=== PATIENT | female | born 1940 | race Caucasian/White ===

== ENCOUNTER → 2017-01-20 16:39 | Outpatient (CLI) | payer MEDICARE ==
[2015-06-04 09:01] VITALS: BMI 16.8
[~2017-01-20 16:39] MED LIST: ALENDRONATE SOD70 MG PO; CALCIUM 600+D T1 TA1 PO; NORVASC2.5 MG PO; TYLENOL W/CODEI1 TAB PO; ZANTAC150 MG PO
== END | disposition home or self-care (01) ==
LOC: D.MAMMO 14:00
DX: Z85.3 Personal history of malignant neoplasm of breast (principal); Z12.31 Encounter for screening mammogram for malignant neoplasm of breast

== ENCOUNTER 2019-05-07 12:10 | Inpatient (IN) | payer MEDICARE ==
[2019-05-07] VITALS (12 sets, daily range): BP systolic 107–125; BP diastolic 47–79; BMI 14.7
[~2019-05-07] VITALS: Ht 160 cm; Wt 41.5 kg
[2019-05-07 12:43] LABS: BASOPHILS 0.1 % (0-2); EOSINOPHILS 0.1 % (0-7); IMMATURE GRANULOCYTES 0.6 % (0-5); LYMPHOCYTES 8.7 % (15-50); MCH 31.5 pg (26.0-34.0); MCHC 32.3 g/dL (31.0-37.0); MCV 97.5 fL (80.0-100.0); MEAN PLATELET VOLUME 8.2 fL (7.4-10.4); MONOCYTES 3.4 % (2-11); NEUTROPHILS 87.1 % (40-80); RBC 2.03 10x6/uL (4.00-5.40); RDW 14.8 % (11.5-14.5); WBC 13.7 10x3/uL (4.8-10.8)
[2019-05-07 12:47] LABS: HEMATOCRIT 19.8 % (36.0-48.0); HEMOGLOBIN 6.4 g/dL (12-16); PLATELET COUNT 718 10x3/uL (130-400)
--- NOTE | 2019-05-07 12:48 | NUR ---
CRITICAL LABS CALLED BY YANIRA MAIL SORTER, AT THIS. HGB 6.4 HCT 19.8 EDP, CHELO, AND PRIMARY RN, GUILLERMO, INFORMED AT THIS TIME
[2019-05-07 13:00] LABS: APTT 31.4 SECONDS (22.8-39.4)
[2019-05-07 13:01] LABS: D-DIMER-QUANTITATIVE 0.66 ug/mLFEU (0.20-0.54); INR 0.96 (0.85-1.17); PROTIME 12.3 SECONDS (11.6-15.0)
[2019-05-07 13:09] LABS: ANION GAP 21.4 mmol/L (8-16); CALCIUM 8.5 mg/dL (8.5-10.1); CARBON DIOXIDE 20.1 mmol/L (21.0-32.0); POTASSIUM - SERUM 3.5 mmol/L (3.5-5.1)
[2019-05-07 13:23] LABS: ALBUMIN 2.7 g/dL (3.4-5.0); BILIRUBIN - TOTAL 0.27 mg/dL (0.2-1.3); MAGNESIUM - SERUM 1.7 mg/dL (1.8-2.4); PROTEIN - SERUM 6.6 g/dL (6.4-8.2); THYROID STIMULATING HORMONE 0.92 uIU/mL (0.36-3.74); TROPONIN-I 0.026 ng/mL (0.000-0.060)
[2019-05-07 13:46] LABS: APPEARANCE CLEAR (CLEAR); BACTERIA MANY /hpf (NEGATIVE); BILIRUBIN NEGATIVE (NEGATIVE); COLOR YELLOW (YELLOW); EPITHELIAL CELLS 0-5 /hpf (0-5); GLUCOSE NEGATIVE (NEGATIVE); KETONE NEGATIVE (NEGATIVE); MUCUS >1+ /lpf (NONE SEEN); NITRITE POSITIVE (NEGATIVE); PROTEIN TRACE mg/dL (NEGATIVE); RED CELLS - URINE 0-5 /hpf (0-5); UROBILINOGEN NORMAL (NORMAL); WHITE CELLS - URINE 0-5 /hpf (NEGATIVE)
--- NOTE | 2019-05-07 14:19 | NUR ---
PT ARRIVED TO UNIT
[2019-05-07] MEDS ORDERED: CALCIUM 500 +1 EAC3 PO (14:28)
[2019-05-07] MEDS ORDERED: AMBIEN5 MG PO (14:29)
--- NOTE | 2019-05-07 15:30 | NUR ---
UNIT OF BLOOD STARTED
--- NOTE | 2019-05-07 17:00 | NUR ---
patient alert and oriented. family at bedside. eating full liquids. tolerated. protonix drip per dr barksdale. levofloxain per dr barksdale. lungs cta. lower lobes diminished. no distress. 2 l nc. murmur. denies shortness of breath. vss. 1 unit complted. will continue to monitor.
[2019-05-07 17:18] LABS: % SATURATION 19 % (15-55); IRON 34 ug/dl (35-150); TOTAL IRON BIND CAPACITY 173 ug/dl (260-445); UNSAT IRON BIND CAPACITY 139 ug/dl (150-375)
[2019-05-07 19:00] LABS: HEMATOCRIT 24.9 % (36.0-48.0); HEMOGLOBIN 8.2 g/dL (12-16)
--- NOTE | 2019-05-07 19:00 | NUR ---
REPORT RECIEVED, PT AAOX4, SITTING IN BED. ASSESSMENT COMPLETED, SEE FLOWSHEET. RECIEVING SECOND UNIT OF PRBC AT THIS TIME, NO ACUTE DISTRESS NOTED. WILL CONTINUE TO MONITOR.
--- NOTE | 2019-05-07 21:00 | NUR ---
PT RESTING IN BED, PRBC STILL INFUSING, NO SIGNS OF ACUTE DISTRESS. PM MEDS TAKEN WITHOUT DIFFICULTY. WILL CONTINUE TO MONITOR.
--- NOTE | 2019-05-07 23:00 | NUR ---
PT SITTING UP IN BED, NO ACUTE DISTRESS NOTED. WILL CONTINUE TO MONITOR.
[2019-05-07 23:01] LABS: HEMATOCRIT 29.5 % (36.0-48.0); HEMOGLOBIN 10.1 g/dL (12-16)
[2019-05-08] VITALS (18 sets, daily range): BP systolic 103–124; BP diastolic 50–66; Ht 160 cm; Wt 41.5 kg
--- NOTE | 2019-05-08 01:00 | NUR ---
PT SITTING IN BED, AAOX4, NO ACUTE DISTRESS NOTED. WILL CONTINUE TO MONITOR.
[2019-05-08 02:44] LABS: BASOPHILS 0 % (0-2); EOSINOPHILS 0 % (0-7); HEMATOCRIT 29.9 % (36.0-48.0); HEMOGLOBIN 10.3 g/dL (12-16); IMMATURE GRANULOCYTES 0.3 % (0-5); LYMPHOCYTES 8.1 % (15-50); MCH 30.8 pg (26.0-34.0); MCHC 34.4 g/dL (31.0-37.0); MEAN PLATELET VOLUME 8.5 fL (7.4-10.4); MONOCYTES 1.4 % (2-11); NEUTROPHILS 90.2 % (40-80); RDW 14.7 % (11.5-14.5)
[2019-05-08 02:47] LABS: RBC 3.34 10x6/uL (4.00-5.40); WBC 9.3 10x3/uL (4.8-10.8)
[2019-05-08 02:48] LABS: MCV 89.5 fL (80.0-100.0); PLATELET COUNT 417 10x3/uL (130-400)
--- NOTE | 2019-05-08 03:00 | NUR ---
PT SITTING UP IN BED, AAOX4. VITALS STABLE, WILL CONTINUE TO MONITOR.
[2019-05-08 03:06] LABS: % SATURATION 40 % (15-55); IRON 69 ug/dl (35-150); TOTAL IRON BIND CAPACITY 172 ug/dl (260-445); UNSAT IRON BIND CAPACITY 103 ug/dl (150-375)
[2019-05-08 03:20] LABS: ALBUMIN 2.4 g/dL (3.4-5.0); ALKALINE PHOSPHATASE 59 U/L (46-116); ALT (SGPT) 15 U/L (10-68); BILIRUBIN - TOTAL 0.37 mg/dL (0.2-1.3); CALC OSMOLALITY 286 mosm/kg (275-300); CALCIUM 7.8 mg/dL (8.5-10.1); CARBON DIOXIDE 23.7 mmol/L (21.0-32.0); CHLORIDE - SERUM 107 mmol/L (98-107); CREATININE - SERUM 0.7 mg/dL (0.6-1.3); FERRITIN 170 ng/mL (3-244); GLUCOSE 127 mg/dL (74-106); POTASSIUM - SERUM 3.6 mmol/L (3.5-5.1); PRO BNP 1335 pg/mL (0-450); SODIUM 142 mmol/L (136-145); TROPONIN-I 0.017 ng/mL (0.000-0.060); UREA NITROGEN 17 mg/dL (7-18); eGFR NON AFRICAN AMERICAN 86 mL/min (90-120)
--- NOTE | 2019-05-08 05:00 | NUR ---
PT SITTING UP IN BED, AAOX4, NO ACUTE DISTRESS NOTED.
--- NOTE | 2019-05-08 07:22 | NUR ---
REPORT RECIEVED, SHIFT ASSESSMENT COMPLETE, PT IS ALERT AND ORIENTED, UPTO BSC, 75CC UOP, SM DARK BM, PT TOLERATED WELL, VSS, CALL LIGHT IN REACH
--- NOTE | 2019-05-08 09:00 | NUR ---
PT RESTING COMFORTABLY AT THIS TIME, VSS, CALL LIGHTIN REACH
--- NOTE | 2019-05-08 11:00 | NUR ---
DR. PARKER AT BEDSIDE, UPDATE GIVEN, OK TO TRANSFER TO FLOOR
[2019-05-08 11:43] LABS: HEMOGLOBIN 10.4 g/dL (12-16)
--- NOTE | 2019-05-08 13:30 | NUR ---
FAMILY AT BEDSIDE, UPDATE GIVEN, WILL CON'T TO MONITOR
--- NOTE | 2019-05-08 17:35 | NUR ---
RECEIVED PATIENT FROM ICU. ALERT AND ORIENTED. FAMILY AT BEDSIDE. NO C/O PAIN. NO S/S OF ACUTE DISTRESS NOTED. DENIES ANY NEEDS AT THIS TIME. CALL LIGHT IN REACH. WILL CONTINUE TO MONITOR.
[2019-05-08 17:38] LABS: HEMATOCRIT 28.7 % (36.0-48.0); HEMOGLOBIN 9.8 g/dL (12-16)
--- NOTE | 2019-05-08 19:20 | MORECARE ---
CASE MANAGEMENT DISCHARGE SUMMARY PATIENT: NAIMA SERRANO UNIT: [id number] ADM DATE: 05/07/19 AGE: 78 : 40 SEX: F ROOM/BED: D.2236 AUTHOR: SONGDOC PHYSICIAN: REFERRING PHYSICIAN: EMILY SHERMAN MD DATE OF SERVICE: 05/08/19 Discharge Plan Patient Name: NAIMA SERRANO Facility: [facility]:[place] : 1940 Planned Disposition: Home Anticipated Discharge Date: Discharge Date: Expected LOS: Initial Reviewer: [id number] Initial Review Date: 05/08/2019 Generated: 05/08/19 8:20 pm Comments DCP- Discharge Planning Updated by [email or web address]: Linda Holloway on 05/08/19 6:[address] Patient Name: NAIMA SERRANO Admission Status: Elective Accout number: [id number] Admission Date: 05-07-2019 : 1940 Admission Diagnosis: Attending: EMILY SHERMAN Current LOS: 1 Anticipated DC Date: Planned Disposition: Home Primary Insurance: [facility] MEDICARE SOLUTIONS Discharge Planning Comments: CM met with patient to complete initial dc planning assessment. CM educated patient on the CM role and verbal consent given by patient to complete assessment. Patient lives at home alone where she is independent with her care. At discharge patient plans to return home and feels this is a safe discharge. CM discussed availability of home health, rehab services, and medical equipment. She will have family drive her home upon discharge. Patient denies any use of medical equipment at home ( walker, cane , home 02 or nebulizer) Patient denied known discharge needs at this time. CM will continue to follow and will assist as needed with dc plans/needs. Smash Hand: Linda Holloway DCPIA - Discharge Planning Initial Assessment Updated by [id number]: Linda Holloway on 05/08/19 7:17 pm * Is the patient Alert and Oriented? Yes * How many steps to enter\exit or inside your home? * PCP Srinivasan * [facility] * Preadmission Environment Home Alone * ADLs Independent * List name and contact numbers for known caregivers / representatives who currently or will assist patient after discharge: Jerrell Serrano - son - [phone] * Verbal permission to speak to the caregivers and representatives has been obtained from the patient. Yes * Community resources currently utilized None * Additional services required to return to the preadmission environment? No * Can the patient safely return to the preadmission environment? Yes * Has this patient been hospitalized within the prior 30 days at any hospital? No Patient Name: NAIMA SERRANO Page [id number] at 1920 All edits/amendments must be made on the electronic document DICTATION DATE: 05/08/191919 ASSISTANT SHIFT SUPERVISOR: CARLYN 05/08/191919 RPT#: [id number] DC DATE: STATUS: ADM IN [facility] [address] [place] [address] END OF REPORT
--- NOTE | 2019-05-08 20:00 | NUR ---
ASSESSMENT -PER FLOWSHEET. IV PATENT LEFT FOREARM OF PROTONIX GGT AT 10CC'S/HR SITE CLEAR. DENIES NEEDS SR UP X2 CALL LIGHT WITHIN. REACH.
--- NOTE | 2019-05-08 22:00 | NUR ---
EYES CLOSED RESPIRATIONS WITH EAse.
[2019-05-08 23:24] LABS: HEMOGLOBIN 9.5 g/dL (12-16)
--- NOTE | 2019-05-09 02:00 | NUR ---
VOIDS WELL DENIES NEEDS.
[2019-05-09 04:00] VITALS: BP 158/56
[2019-05-09 06:55] LABS: BASOPHILS 0.1 % (0-2); EOSINOPHILS 0.1 % (0-7); HEMATOCRIT 29.9 % (36.0-48.0); HEMOGLOBIN 9.9 g/dL (12-16); IMMATURE GRANULOCYTES 0.4 % (0-5); LYMPHOCYTES 13.2 % (15-50); MCH 30.5 pg (26.0-34.0); MCHC 33.1 g/dL (31.0-37.0); MEAN PLATELET VOLUME 8.2 fL (7.4-10.4); MONOCYTES 5.5 % (2-11); NEUTROPHILS 80.7 % (40-80); PLATELET COUNT 495 10x3/uL (130-400); RBC 3.25 10x6/uL (4.00-5.40); RDW 16.2 % (11.5-14.5)
[2019-05-09 07:19] LABS: CALCIUM 7.8 mg/dL (8.5-10.1); CARBON DIOXIDE 28.2 mmol/L (21.0-32.0); CHLORIDE - SERUM 109 mmol/L (98-107); CREATININE - SERUM 0.7 mg/dL (0.6-1.3); GLUCOSE 87 mg/dL (74-106); SODIUM 145 mmol/L (136-145); WBC 11.7 10x3/uL (4.8-10.8); eGFR NON AFRICAN AMERICAN 86 mL/min (90-120)
[2019-05-09 07:24] LABS: CALC OSMOLALITY 286 mosm/kg (275-300); UREA NITROGEN 11 mg/dL (7-18)
[2019-05-09 07:26] LABS: POTASSIUM - SERUM 2.9 mmol/L (3.5-5.1)
--- NOTE | 2019-05-09 07:38 | NUR ---
PT SITTING UP IN BED WITH EYES OPEN ALERT AND ORIENTED. IV LOCATED TO THE LEFT FA RUNNING PROTOTIX AT 10ML AND RIGHT FA CURRENTLY SL. CURRENTLY RCVING 2L VIA NC. NO S/S OF DISTRESS AT THIS TIME. ASSISTED TO THE BATHROOM AND BACK TO BED, DENIES OTHER NEEDS AT THIS TIME, WILL CONT TO MONITOR.
[2019-05-09 08:34] VITALS: BP 120/48
--- NOTE | 2019-05-09 08:40 | NUR ---
LAB CALLED WITH CRITICAL K+ LEVEL OF 2.9, TREATED WITH 1ST DOSE OF [id number], 2 MORE DOES TO FOLLOW.
--- NOTE | 2019-05-09 10:51 | NUR ---
NOTIFIED OF K+ LEVEL OF 2.9. CONT WITH ELECTROLYTE PROTOCOL.
--- NOTE | 2019-05-09 11:41 | EC ---
PATIENT:NAIMA SERRANO DATE OF SERVICE: 05/07/19 SEX: F MEDICAL RECORD: [id number] DATE OF : 40 LOCATION:[facility] AGE OF PATIENT: 78 ADMISSION DATE: 05/07/19 REFERRING PHYSICIAN: INTERPRETING PHYSICIAN: MELITON VARGAS MD ECHOCARDIOGRAM REPORT ECHO CHARGES 4 ECHO COMPLETE Date: 05/08/19 CLINICAL DIAGNOSIS: VALVULAR HEART DISEASE ECHOCARDIOGRAPHIC MEASUREMENTS (adult normal given) AC root (d.<3.7cm) 1.6 cm LV Septum d (<1.2 cm> 0.9 cm Valve Excursion 0.7 cm LV Septum (systole) 1.2 cm Left Atria (s.<4.0cm> 3.2 cm LVPW d(<1.2cm) 0.7 cm RV (d.<2.3cm) 2.3 cm LVPW (sytole) 0.9 cm LV diastole(<5.6CM) 5.1 cm MV E-F(>70mm/sec) cm LV systole 4.0 cm LVOT Diameter 1.7 cm MV exc.(>10mm) cm Est.ejection fraction (50-75%) % DOPPLER: LVIT cm/sec A 114 cm/sec E 80 cm/sec LA cm/sec RVSP 36.2 mmHg LVOT 120 cm/sec AOP1/2T m/s Asc. Ao 374 cm/sec RVOT 82 cm/sec RA cm/sec PA 96 cm/sec AV Gradient Peak 56.0 mmHg AV Mean 33.5 mmHg AV Area 0.7 cm MV Gradient Peak 5.8 mmHg MV Mean 3.5 mmHg MV Area cm COMMENTS: Supervisor Agricultural Education: Alejandro OLMOS Milling Machine Operator Gear: 1 Dr. Vargas TAPE# PACS Pericardial Effusion N DATE OF SERVICE: 05/08/2019 PROCEDURE: Echocardiogram. FINDINGS: 1. Left ventricular chamber size is within normal limits. Left ventricular systolic function is normal at 55% to 60%. 2. Left atrium, right atrium, and right ventricle chamber sizes are within normal limits. 3. 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 The remaining valvular structures have normal structure and motion. 4. Doppler interrogation elsewise reveals mild aortic insufficiency, mild mitral regurgitation, mild tricuspid regurgitation, no other valvular insufficiency or stenosis and pulmonary systolic pressure is normal estimated 36 mmHg. 5. No evidence of pericardial effusion or left ventricular thrombus. TRANSINT:[id number] Voice Confirmation ID: [id number] DOCUMENT ID: [id number] MELITON VARGAS MD at 1141 CC: [id number] DICTATION DATE: 05/08/19 1119 ORDER TO DELIVERY SUPERVISOR: 05/08/19 1214 ADM IN [place] [id number] [place] [id number]
[2019-05-09 12:53] VITALS: BP 115/52
[2019-05-09 17:02] VITALS: BP 115/53
--- NOTE | 2019-05-09 20:00 | NUR ---
ASSESSMENT PER FLOWSHEET. IV PATENT LEFT ARM OF PROTONIX GTT AT 10CC'S/HR SALINE LOCK TO RT ARM PATENT. SCD'S OFF AT THIS TIME. BED ALARM BED ON SR UP X2 CALL LIGHT WITHIN REACH. DENIES NEEDS.
[2019-05-09 20:46] VITALS: BP 111/45
--- NOTE | 2019-05-09 21:15 | NUR ---
MEDS GIVEN PER MAR. DENIES NEEDS.
--- NOTE | 2019-05-10 00:43 | NUR ---
EYES CLOSED RESPIRATIONS WITH EASE AND UNLABORED. MEDS PER SEP.
[2019-05-10 01:11] VITALS: BP 124/50
[2019-05-10 05:43] VITALS: BP 120/48
[2019-05-10 06:18] LABS: BASOPHILS 0.1 % (0-2); HEMOGLOBIN 9.6 g/dL (12-16); IMMATURE GRANULOCYTES 0.3 % (0-5); LYMPHOCYTES 26.2 % (15-50); MCH 30.8 pg (26.0-34.0); MCHC 33.1 g/dL (31.0-37.0); MCV 92.9 fL (80.0-100.0); MEAN PLATELET VOLUME 8.4 fL (7.4-10.4); MONOCYTES 8.3 % (2-11); NEUTROPHILS 64.1 % (40-80); PLATELET COUNT 452 10x3/uL (130-400); RBC 3.12 10x6/uL (4.00-5.40); RDW 16.2 % (11.5-14.5)
[2019-05-10 06:24] LABS: WBC 7.2 10x3/uL (4.8-10.8)
[2019-05-10 06:33] LABS: ALBUMIN 2.3 g/dL (3.4-5.0); ALKALINE PHOSPHATASE 58 U/L (46-116); ALT (SGPT) 19 U/L (10-68); BILIRUBIN - TOTAL 0.29 mg/dL (0.2-1.3); CALC OSMOLALITY 285 mosm/kg (275-300); CALCIUM 7.6 mg/dL (8.5-10.1); CARBON DIOXIDE 29.3 mmol/L (21.0-32.0); CHLORIDE - SERUM 108 mmol/L (98-107); CREATININE - SERUM 0.7 mg/dL (0.6-1.3); GLUCOSE 89 mg/dL (74-106); POTASSIUM - SERUM 3.4 mmol/L (3.5-5.1); PROTEIN - SERUM 5.7 g/dL (6.4-8.2); SODIUM 145 mmol/L (136-145); eGFR NON AFRICAN AMERICAN 86 mL/min (90-120)
[2019-05-10 06:34] LABS: UREA NITROGEN 7 mg/dL (7-18)
--- NOTE | 2019-05-10 07:25 | NUR ---
PT AWAKE, ALERT AND ORIENTED, ASISTED TO THE BATHROOM AND BACK TO BED. IV LOCATED TO LEFT FA RUNNING PROTONIX @ 10, IV LOCATED TO RIGHT FA CURRENTLY SL. CURRENTLY RCVING O2 @ 2L. NO S/S OF DISTRESS AT THIS TIME, DENIES NEEDS AT THIS TIME WILL CONT TO MONITOR.
--- NOTE | 2019-05-10 08:27 | MORECARE ---
CASE MANAGEMENT DISCHARGE SUMMARY PATIENT: NAIMA SERRANO UNIT: [id number] ADM DATE: 05/07/19 AGE: 78 : 40 SEX: F ROOM/BED: D.2236 AUTHOR: SONGDOC PHYSICIAN: REFERRING PHYSICIAN: EMILY SHERMAN MD DATE OF SERVICE: 05/10/19 Discharge Plan Patient Name: NAIMA SERRANO Facility: [facility]:[place] : 1940 Planned Disposition: Home Anticipated Discharge Date: Discharge Date: Expected LOS: Initial Reviewer: [email or web address] Initial Review Date: 05/08/2019 Generated: 05/10/19 9:26 am Comments DCP- Discharge Planning Updated by [email or web address]: Linda Holloway on 05/08/19 6:[address] Patient Name: NAIMA SERRANO Admission Status: Elective Accout number: [id number] Admission Date: 05-07-2019 : 1940 Admission Diagnosis: Attending: EMILY SHERMAN Current LOS: 1 Anticipated DC Date: Planned Disposition: Home Primary Insurance: [facility] MEDICARE SOLUTIONS Discharge Planning Comments: CM met with patient to complete initial dc planning assessment. CM educated patient on the CM role and verbal consent given by patient to complete assessment. Patient lives at home alone where she is independent with her care. At discharge patient plans to return home and feels this is a safe discharge. CM discussed availability of home health, rehab services, and medical equipment. She will have family drive her home upon discharge. Patient denies any use of medical equipment at home ( walker, cane , home 02 or nebulizer) Patient denied known discharge needs at this time. CM will continue to follow and will assist as needed with dc plans/needs. Nuclear Pharmacist: Linda Holloway DCPIA - Discharge Planning Initial Assessment Updated by [email or web address]: Linda Holloway on 05/08/19 7:17 pm * Is the patient Alert and Oriented? Yes * How many steps to enter\exit or inside your home? * PCP Srinivasan * Pharmacy [place] * Preadmission Environment Home Alone * ADLs Independent * List name and contact numbers for known caregivers / representatives who currently or will assist patient after discharge: Jerrell Serrano - son - [phone] * Verbal permission to speak to the caregivers and representatives has been obtained from the patient. Yes * Community resources currently utilized None * Additional services required to return to the preadmission environment? No * Can the patient safely return to the preadmission environment? Yes * Has this patient been hospitalized within the prior 30 days at any hospital? No External Providers [facility] Contact Date: Service Request Date: Service Type: Resolution: Reviewer: Comments: Last DP export: 05/08/19 6:20 Patient Name: NAIMA SERRANO Page [id number] at 0827 All edits/amendments must be made on the electronic document DICTATION DATE: 05/10/19825 NEON ELECTRICIAN: CARLYN 05/10/19825 RPT#: [id number] DC DATE: STATUS: ADM IN [facility] [address] [place] [address] END OF REPORT
--- NOTE | 2019-05-10 08:34 | MORECARE ---
CASE MANAGEMENT DISCHARGE SUMMARY PATIENT: NAIMA SERRANO UNIT: [id number] ADM DATE: 05/07/19 AGE: 78 : 40 SEX: F ROOM/BED: D.2236 AUTHOR: SONG,DOC PHYSICIAN: REFERRING PHYSICIAN: EMILY SHERMAN MD DATE OF SERVICE: 05/10/19 Discharge Plan Patient Name: NAIMA SERRANO Facility: [facility]:[place] : 1940 Planned Disposition: Home Anticipated Discharge Date: Discharge Date: Expected LOS: Initial Reviewer: [id number] Initial Review Date: 05/08/2019 Generated: 05/10/19 9:33 am Comments DCP- Discharge Planning Updated by [email or web address]: Rhonda Spann on 05/10/19 7:[address] Walk test ordered to test for home oxygen. Nebulizer and possible oxygen order sent to [facility] after ADELAIDA form signed and Brian notified. Clinical faxed to [facility]. Patient declines home health. States "I still drive and get around, just not at night." CM will continue to follow and assist with discharge planning/needs. DCP- Discharge Planning Updated by [id number]: Linda Holloway on 05/08/19 6:[address] Patient Name: NAIMA SERRANO Admission Status: Elective Accout number: [id number] Admission Date: 05-07-2019 : 1940 Admission Diagnosis: Attending: EMILY SHERMAN Current LOS: 1 Anticipated DC Date: Planned Disposition: Home Primary Insurance: [facility] MEDICARE SOLUTIONS Discharge Planning Comments: CM met with patient to complete initial dc planning assessment. CM educated patient on the CM role and verbal consent given by patient to complete assessment. Patient lives at home alone where she is independent with her care. At discharge patient plans to return home and feels this is a safe discharge. CM discussed availability of home health, rehab services, and medical equipment. She will have family drive her home upon discharge. Patient denies any use of medical equipment at home ( walker, cane , home 02 or nebulizer) Patient denied known discharge needs at this time. CM will continue to follow and will assist as needed with dc plans/needs. Deputy County Counsel: Linda Holloway DCPIA - Discharge Planning Initial Assessment Updated by [id number]: Linda Pepperr on 05/08/19 7:17 pm * Is the patient Alert and Oriented? Yes * How many steps to enter\\exit or inside your home? * PCP Srinivasan * Pharmacy [facility] * Preadmission Environment Home Alone * ADLs Independent * List name and contact numbers for known caregivers / representatives who currently or will assist patient after discharge: Jerrell Serrano [facility] - [phone] * Verbal permission to speak to the caregivers and representatives has been obtained from the patient. Yes * Community resources currently utilized None * Additional services required to return to the preadmission environment? No * Can the patient safely return to the preadmission environment? Yes * Has this patient been hospitalized within the prior 30 days at any hospital? No Coverage Notice Reviewer: [id number] R Spann Notice Issued Date-Time: 05/10/2019 8:26 Notice Type: IM Discharge Notice Notice Delivered To: Patient Relationship to Patient: Self Salsa Dance Instructor Name: Delivery Method: HAND - Hand Delivered Marylu Days: Prior Verbal Notification: Recipient Understood Notice: Yes Recipient Signature: Yes Med Rec Note Co-signed by Attending: Coverage Notice Comment: IMM explained, signed, given, copy placed in MR Reviewer: [id number] R Spann Notice Issued Date-Time: 05/10/2019 8:26 Notice Type: Patient Choice Letter Notice Delivered To: Patient Relationship to Patient: Self Salsa Dance Instructor Name: Delivery Method: HAND - Hand Delivered Marylu Days: Prior Verbal Notification: Recipient Understood Notice: Yes Recipient Signature: Yes Med Rec Note Co-signed by Attending: Coverage Notice Comment: ADELAIDA for Souravare Last DP export: 05/10/19 7:27 Patient Name: NAIMA SERRANO Page [phone] at 0834 All edits/amendments must be made on the electronic document DICTATION DATE: 05/10/19832 METAL TREATER: CARLYN 05/10/19832 RPT#: [id number] DC DATE: STATUS: ADM IN [facility] [address] [place] [address] END OF REPORT
[2019-05-10 08:46] VITALS: BP 112/43
--- NOTE | 2019-05-10 09:07 | NUR ---
K+ 3.4, TREATED WITH 40MEQ. WILL CONT TO MONITOR.
--- NOTE | 2019-05-10 09:30 | NUR ---
PATIENT 97% ON RA PATIENT 95% ON RA AFTER AMBULATION
[2019-05-10] MEDS ORDERED: FLORAJEN3 CAPS460 MG PO (11:01)
[2019-05-10] MEDS ORDERED: PULMICORT0.25 MG/1 INH (11:01)
[2019-05-10] MEDS ORDERED: BROVANA15 MCG/2 M INH (11:02)
[2019-05-10] MEDS ORDERED: IPRAT-ALBUT 0.5-3 ML INH (11:02)
[2019-05-10] MEDS ORDERED: SULFAMETHOXAZOL1 TA2 PO (11:04)
[2019-05-10 12:10] VITALS: BP 98/56
--- NOTE | 2019-05-10 12:18 | MORECARE ---
CASE MANAGEMENT DISCHARGE SUMMARY PATIENT: NAIMA SERRANO UNIT: [id number] ADM DATE: 05/07/19 AGE: 78 : 40 SEX: F ROOM/BED: D.2236 AUTHOR: CARMEN ZULETA PHYSICIAN: REFERRING PHYSICIAN: EMILY SHERMAN MD DATE OF SERVICE: 05/10/19 Discharge Plan Patient Name: NAIMA SERRANO Facility: [facility]:[place] : 1940 Planned Disposition: Home Anticipated Discharge Date: Discharge Date: Expected LOS: Initial Reviewer: [email or web address] Initial Review Date: 05/08/2019 Generated: 05/10/19 1:18 pm Comments DCP- Discharge Planning Updated by [email or web address]: Rhonda Spann on 05/10/19 11:[address] Oxygen saturation is 97% on room air at rest and 95% with exertion on room air, she does not qualify for home oxygen. She is in a chronic stable state and is discharging home today. Her son is picking up her nebulizer at [facility] (Per Brian). Clinical for [facility] faxed to [facility]. Home today. DCP- Discharge Planning Updated by [email or web address]: Rhonda Spann on 05/10/19 7:[address] Walk test ordered to test for home oxygen. Nebulizer and possible oxygen order sent to [facility] after ADELAIDA form signed and Brian notified. Clinical faxed to [facility]. Patient declines home health. States "I still drive and get around, just not at night." CM will continue to follow and assist with discharge planning/needs. DCP- Discharge Planning Updated by [id number]: Linda Holloway on 05/08/19 6:[address] Patient Name: NAIMA SERRANO Admission Status: Elective Accout number: [id number] Admission Date: 05-07-2019 : 1940 Admission Diagnosis: Attending: EMILY SHERMAN Current LOS: 1 Anticipated DC Date: Planned Disposition: Home Primary Insurance: [facility] MEDICARE SOLUTIONS Discharge Planning Comments: CM met with patient to complete initial dc planning assessment. CM educated patient on the CM role and verbal consent given by patient to complete assessment. Patient lives at home alone where she is independent with her care. At discharge patient plans to return home and feels this is a safe discharge. CM discussed availability of home health, rehab services, and medical equipment. She will have family drive her home upon discharge. Patient denies any use of medical equipment at home ( walker, cane , home 02 or nebulizer) Patient denied known discharge needs at this time. CM will continue to follow and will assist as needed with dc plans/needs. Lead Tank Mechanic: Linda Holloway DCPIA - Discharge Planning Initial Assessment Updated by [id number]: Linda Holloway on 05/08/19 7:17 pm * Is the patient Alert and Oriented? Yes * How many steps to enter\\exit or inside your home? * PCP [place] * Pharmacy [place] * Preadmission Environment Home Alone * ADLs Independent * List name and contact numbers for known caregivers / representatives who currently or will assist patient after discharge: Jerrell Serrano [facility] - [phone] * Verbal permission to speak to the caregivers and representatives has been obtained from the patient. Yes * Community resources currently utilized None * Additional services required to return to the preadmission environment? No * Can the patient safely return to the preadmission environment? Yes * Has this patient been hospitalized within the prior 30 days at any hospital? No Coverage Notice Reviewer: [id number] R Spann Notice Issued Date-Time: 05/10/2019 8:26 Notice Type: IM Discharge Notice Notice Delivered To: Patient Relationship to Patient: Self Sole Tier Name: Delivery Method: HAND - Hand Delivered Marylu Days: Prior Verbal Notification: Recipient Understood Notice: Yes Recipient Signature: Yes Med Rec Note Co-signed by Attending: Coverage Notice Comment: IMM explained, signed, given, copy placed in MR Reviewer: [id number] R Spann Notice Issued Date-Time: 05/10/2019 8:26 Notice Type: Patient Choice Letter Notice Delivered To: Patient Relationship to Patient: Self Sole Tier Name: Delivery Method: HAND - Hand Delivered Marylu Days: Prior Verbal Notification: Recipient Understood Notice: Yes Recipient Signature: Yes Med Rec Note Co-signed by Attending: Coverage Notice Comment: ADELAIDA for Janny Tenzin DP export: 05/10/19 7:34 Patient Name: NAIMA SERRANO Page [phone] at 1218 All edits/amendments must be made on the electronic document DICTATION DATE: 05/10/191217 BENEFITS CONSULTING ANALYST: CARLYN 05/10/191217 RPT#: [id number] DC DATE: STATUS: ADM IN [facility] [address] [place] [address] END OF REPORT
--- NOTE | 2019-05-10 13:37 | NUR ---
DC PAPERS SIGNED, PT IS WAITING ON RIDE.
--- NOTE | 2019-05-13 11:32 | MORECARE ---
CASE MANAGEMENT DISCHARGE SUMMARY PATIENT: NAIMA SERRANO UNIT: [id number] ADM DATE: 05/07/19 AGE: 78 : 40 SEX: F ROOM/BED: D.2236 AUTHOR: CARMEN ZULETA PHYSICIAN: REFERRING PHYSICIAN: EMILY SHERMAN MD DATE OF SERVICE: 05/13/19 Discharge Plan Patient Name: NAIMA SERRANO Facility: [facility]:[place] : 1940 Planned Disposition: Home Anticipated Discharge Date: Discharge Date: 05/10/2019 Expected LOS: Initial Reviewer: [id number] Initial Review Date: 05/08/2019 Generated: 05/13/19 12:32 pm Comments DCP- Discharge Planning Updated by [email or web address]: Rhonda Spann on 05/10/19 11:[address] Oxygen saturation is 97% on room air at rest and 95% with exertion on room air, she does not qualify for home oxygen. She is in a chronic stable state and is discharging home today. Her son is picking up her nebulizer at [facility] (Per Brian). Clinical for [facility] meds faxed to [facility]. Home today. DCP- Discharge Planning Updated by [email or web address]: Rhonda Spann on 05/10/19 7:[address] Walk test ordered to test for home oxygen. Nebulizer and possible oxygen order sent to [facility] after ADELAIDA form signed and Brian notified. Clinical faxed to [facility]. Patient declines home health. States "I still drive and get around, just not at night." CM will continue to follow and assist with discharge planning/needs. DCP- Discharge Planning Updated by [id number]: Linda Holloway on 05/08/19 6:[address] Patient Name: NAIMA SERRANO Admission Status: Elective Accout number: [id number] Admission Date: 05-07-2019 : 1940 Admission Diagnosis: Attending: EMILY SHERMAN Current LOS: 1 Anticipated DC Date: Planned Disposition: Home Primary Insurance: [facility] MEDIC[facility] SOLUTIONS Discharge Planning Comments: CM met with patient to complete initial dc planning assessment. CM educated patient on the CM role and verbal consent given by patient to complete assessment. Patient lives at home alone where she is independent with her care. At discharge patient plans to return home and feels this is a safe discharge. CM discussed availability of home health, rehab services, and medical equipment. She will have family drive her home upon discharge. Patient denies any use of medical equipment at home ( walker, cane , home 02 or nebulizer) Patient denied known discharge needs at this time. CM will continue to follow and will assist as needed with dc plans/needs. International Accounting Manager: Linda Holloway DCPIA - Discharge Planning Initial Assessment Updated by [id number]: Linda Holloawy on 05/08/19 7:17 pm * Is the patient Alert and Oriented? Yes * How many steps to enter\\exit or inside your home? * PCP Srinivasan * Pharmacy [facility] * Preadmission Environment Home Alone * ADLs Independent * List name and contact numbers for known caregivers / representatives who currently or will assist patient after discharge: Jerrell Serrano [facility] - [phone] * Verbal permission to speak to the caregivers and representatives has been obtained from the patient. Yes * Community resources currently utilized None * Additional services required to return to the preadmission environment? No * Can the patient safely return to the preadmission environment? Yes * Has this patient been hospitalized within the prior 30 days at any hospital? 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 Name: Delivery Method: HAND - Hand Delivered Marylu Days: Prior Verbal Notification: Recipient Understood Notice: Yes Recipient Signature: Yes Med Rec Note Co-signed by Attending: Coverage Notice Comment: IMM explained, signed, given, copy placed in MR Reviewer: [id number] Leroy Spann Notice Issued Date-Time: 05/10/2019 8:26 Notice Type: Patient Choice Letter Notice Delivered To: Patient Relationship to Patient: Self [employer] Product Fabricator Name: Delivery Method: HAND - Hand Delivered Marylu Days: Prior Verbal Notification: Recipient Understood Notice: Yes Recipient Signature: Yes Med Rec Note Co-signed by Attending: Coverage Notice Comment: ADELAIDA for Janny Tenzin DP export: 05/10/19 11:18 Patient Name: NAIMA SERRANO Page [id number] at 1132 All edits/amendments must be made on the electronic document DICTATION DATE: 05/13/19 1131 [employer]: CARLYN 05/13/19 1131 RPT#: [id number] DC DATE:05/10/19 STATUS: DIS IN [facility] [address] [place] [address] END OF REPORT
== END 2019-05-10 14:28 | disposition home or self-care (01) | DRG 871 ==
LOC: D.ER 12:10 → D.MS 13:05 → D.ICU 13:05 → D.MS 05-08 17:14
PROVIDERS: Family Medicine; ADMIT Internal Medicine Nephrology; ATTEND Internal Medicine Nephrology
DX: A41.9 Sepsis, unspecified organism (principal); J96.01 Acute respiratory failure with hypoxia; E43 Unspecified severe protein-calorie malnutrition; J44.1 Chronic obstructive pulmonary disease with (acute) exacerbation; Z68.1 Body mass index [BMI] 19.9 or less, adult; G93.1 Anoxic brain damage, not elsewhere classified; D62 Acute posthemorrhagic anemia; N39.0 Urinary tract infection, site not specified; E87.2 Acidosis; F11.20 Opioid dependence, uncomplicated; I38 Endocarditis, valve unspecified; D47.3 Essential (hemorrhagic) thrombocythemia; E83.42 Hypomagnesemia; M50.90 Cervical disc disorder, unspecified, unspecified cervical region

== ENCOUNTER → 2019-06-19 14:29 | Outpatient (CLI) | payer MEDICARE ==
[2019-05-08 09:42] VITALS: BMI 16.1
[~2019-06-19 14:29] MED LIST changes: +AMBIEN5 MG PO; +BROVANA15 MCG/2 M INH; +CALCIUM 500 +1 EAC3 PO; +FLORAJEN3 CAPS460 MG PO; +IPRAT-ALBUT 0.5-3 ML INH; +PULMICORT0.25 MG/1 INH; +SULFAMETHOXAZOL1 TA2 PO
[2019-06-19 15:08] LABS: BASOPHILS 0.2 % (0-2); EOSINOPHILS 0.2 % (0-7); HEMATOCRIT 26.2 % (36.0-48.0); HEMOGLOBIN 8.1 g/dL (12-16); IMMATURE GRANULOCYTES 0.2 % (0-5); LYMPHOCYTES 12.5 % (15-50); MCH 28.4 pg (26.0-34.0); MCHC 30.9 g/dL (31.0-37.0); MCV 91.9 fL (80.0-100.0); MEAN PLATELET VOLUME 7.7 fL (7.4-10.4); MONOCYTES 6.6 % (2-11); NEUTROPHILS 80.3 % (40-80); RBC 2.85 10x6/uL (4.00-5.40); RDW 15.8 % (11.5-14.5); WBC 9.3 10x3/uL (4.8-10.8)
[2019-06-19 15:22] LABS: PLATELET COUNT 739 10x3/uL (130-400)
== END | disposition home or self-care (01) ==
LOC: D.LAB 14:29
PROVIDERS: ATTEND Internal Medicine Gastroenterology
DX: R19.5 Other fecal abnormalities (principal)

== ENCOUNTER → 2019-06-22 13:34 | Outpatient (CLI) | payer MEDICARE ==
[2019-05-08 09:42] VITALS: BMI 16.1
[2019-06-22 14:28] LABS: BASOPHILS 0.4 % (0-2); HEMOGLOBIN 8.6 g/dL (12-16); IMMATURE GRANULOCYTES 0.4 % (0-5); LYMPHOCYTES 19.5 % (15-50); MCH 28.2 pg (26.0-34.0); MCHC 30.7 g/dL (31.0-37.0); MCV 91.8 fL (80.0-100.0); MEAN PLATELET VOLUME 8.3 fL (7.4-10.4); MONOCYTES 8.8 % (2-11); NEUTROPHILS 68.9 % (40-80); PLATELET COUNT 841 10x3/uL (130-400); RBC 3.05 10x6/uL (4.00-5.40); RDW 16.1 % (11.5-14.5); WBC 7.6 10x3/uL (4.8-10.8)
== END | disposition home or self-care (01) ==
LOC: D.LAB 13:34
PROVIDERS: ATTEND Internal Medicine Gastroenterology
DX: D64.9 Anemia, unspecified (principal)

== ENCOUNTER 2019-07-10 12:16 | Day surgery (SDC) | payer MEDICARE ==
[~2019-07-10] VITALS: Ht 160 cm; Wt 38.2 kg
--- NOTE | ~2019-07-10 | OP ---
PATIENT NAME: NAIMA SERRANO MEDICAL RECORD: [id number] :40 LOCATION:[facility] ADMISSION DATE: SURGEON: AMNDI RAMIREZ DO DATE OF OPERATION: 07/10/2019 PROCEDURE: EGD with biopsies. INDICATIONS FOR PROCEDURE: Anemia and positive stool guaiac. SCOPE: Olympus video gastroscope. MEDICATIONS: Propofol 160 mg IV per anesthesia. ESTIMATED BLOOD LOSS: Minimal. COMPLICATIONS: None. FINDINGS: Informed consent was given. The patient was made comfortable with the above medication. After reaching an adequate level of sedation by slow IV push, the patient was placed on her left side. The endoscope was advanced under direct visualization through the mouth to the second portion of the duodenum. The entire esophagus appeared normal. At the GE junction, there was evidence of LA class C, reflux-induced esophagitis and possible Simons's mucosa. Cold forceps biopsies were taken from the squamocolumnar junction to submit for histopathology and to look for Simons mucosa. The endoscope was advanced beyond the GE junction into the stomach and retroflexed to view the cardia, where a small sliding hiatal hernia was present. The fundus of the stomach appeared normal. In the body and antrum of the stomach, there were a few scattered patchy areas of erythema and granularity consistent with gastritis. Cold forceps, biopsies were taken from the antrum and incisura to submit for histopathology and to rule out the presence of H. pylori. In the pyloric channel, there were 2-3 superficial ulcerations which were not actively bleeding. One of the 3 was slightly deeper and could easily be a source of melena and anemia. The endoscope was advanced beyond the pylorus into the duodenum where there was some erythema and granularity in the duodenal bulb. In the second portion of the duodenum, appearances were normal. The endoscope was withdrawn from the patient. The patient tolerated the procedure well and there were no immediate complications. IMPRESSION: 1. 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 Biopsies were taken from the squamocolumnar junction to submit for histopathology. 2. Small sliding hiatal hernia. 3. Gastritis. 4. Gastric ulcers in the pyloric channel. 5. Duodenitis. PLAN AND RECOMMENDATIONS: 1. Discharge home when recovery parameters are met. 2. Follow up biopsy specimen results. 3. We will treat for H. pylori if indicated. 4. Continue current medications. 5. A prescription for omeprazole 40 mg daily or equivalent PPI will be given for use for 60 days. OPERATIVE REPORT [id number] NAIMA SERRANO 6. Notify GI clinic if symptoms return or worsen. TRANSINT:[id number] Voice Confirmation ID: [id number] DOCUMENT ID: [id number] MANDI RAMIREZ DO CC: [id number] DICTATION DATE: 07/10/19 1431 BLOCKER POLISHING: 07/10/192135 [facility] 07/10/19 [place] [id number]
[2019-07-10 12:58] LABS: HEMATOCRIT 31.1 % (36.0-48.0); HEMOGLOBIN 9.6 g/dL (12-16); MCH 28.6 pg (26.0-34.0); MCHC 30.9 g/dL (31.0-37.0); MCV 92.6 fL (80.0-100.0); RBC 3.36 10x6/uL (4.00-5.40); RDW 17.8 % (11.5-14.5); WBC 7.7 10x3/uL (4.8-10.8)
[2019-07-10 13:09] LABS: APTT 36.3 SECONDS (22.8-39.4); INR 1.01 (0.85-1.17); PROTIME 12.8 SECONDS (11.6-15.0)
[2019-07-10 13:41] VITALS: BP 129/62; Ht 160 cm; Wt 38.2 kg
--- NOTE | 2019-07-10 15:25 | NUR ---
1515 IV REMOVED AND INSTRUCTIONS GIVEN.
== END 2019-07-10 15:25 | disposition home or self-care (01) ==
LOC: D.OPS 12:16
PROVIDERS: Anesthesiology; ATTEND Internal Medicine Gastroenterology
DX: D64.9 Anemia, unspecified (principal); R19.5 Other fecal abnormalities; R01.1 Cardiac murmur, unspecified

== ENCOUNTER 2019-12-29 08:18 | Day surgery (SDC) | payer OTHER ==
[~2019-12-29] VITALS: Ht 160 cm; Wt 44.0 kg
[2019-12-29 08:38] LABS: BASOPHILS 0.9 % (0-2); EOSINOPHILS 1.4 % (0-7); HEMATOCRIT 39.3 % (36.0-48.0); HEMOGLOBIN 12.3 g/dL (12-16); LYMPHOCYTES 18.8 % (15-50); MCH 26.3 pg (26.0-34.0); MCHC 31.3 g/dL (31.0-37.0); MEAN PLATELET VOLUME 8.7 fL (7.4-10.4); MONOCYTES 5.2 % (2-11); NEUTROPHILS 72.7 % (40-80); RBC 4.68 10x6/uL (4.00-5.40); RDW 20.3 % (11.5-14.5)
[2019-12-29 08:47] LABS: PLATELET COUNT 495 10x3/uL (130-400)
[2019-12-29 10:00] VITALS: BP 158/77; Ht 160 cm; Wt 44.0 kg
--- NOTE | 2019-12-29 11:41 | NUR ---
DC INSTRUCTIONS GIVEN TO PT/SON. STATE UNDERSTANDING. DC'D IV CATH FULLY INTACT. WILL DC PT FROM UNIT SHORTLY.
--- NOTE | 2019-12-29 11:52 | NUR ---
PT LEFT UNIT VIA WC AT 1146
--- NOTE | 2019-12-30 08:31 | OP ---
PATIENT NAME: NAIMA SERRANO MEDICAL RECORD: [id number] :40 LOCATION:[facility] ADMISSION DATE: SURGEON: MANDI RAMIREZ DO DATE OF OPERATION: 12/29/2019 PROCEDURE: Colonoscopy with polypectomy. INDICATIONS FOR PROCEDURE: Anemia and positive stool guaiac. SCOPE: Olympus video pediatric colonoscope. MEDICATIONS: Propofol 200 mg IV per anesthesia. WITHDRAWAL TIME: 18 minutes. ESTIMATED BLOOD LOSS: Minimal. COMPLICATIONS: None. FINDINGS AND DESCRIPTION OF PROCEDURE: Informed consent was given. The patient was made comfortable with the above medication. After reaching an adequate level of sedation by slow IV push, the patient was placed on her left side. A digital rectal examination was performed and it was normal. The endoscope was advanced under direct visualization through the rectum to the cecum, confirmed by the presence of the appendiceal orifice and ileocecal valve. The endoscope was slowly withdrawn and the mucosa was carefully examined. The prep quality was good. There were 3 polyps visualized on today's examination. The first and largest polyp was located in the ascending colon. It was approximately 1.1 to 1.2 cm in size. It was a sessile polyp and it was removed using EMR technique with a saline injection for a pillow followed by a hot snare polypectomy. In the descending colon, there was a benign appearing sessile polyp, which measured approximately 4-mm in diameter. It was removed using a cold snare. In the sigmoid colon, there was a diminutive polyp that was removed using cold forceps. There was evidence of mild diverticulosis involving the entire colon with the majority of the diverticula located in the sigmoid region. Retroflexion was performed in the rectum with visualization of grade I internal hemorrhoids without bleeding. The endoscope was withdrawn from the patient. The patient tolerated the procedure well and there were no complications. IMPRESSION: 1. Three polyps as described above, removed using a combination of EMR technique, cold snare, and cold forceps. 2. Mild diverticulosis. 3. Grade I internal hemorrhoids without bleeding. PLAN AND RECOMMENDATIONS: 1. Discharge home when recovery parameters are met. 2. Follow up biopsy specimen results. 3. High fiber diet. 4. Continue current medications. 5. No further colonoscopies are necessary based on the patient's age. TRANSINT:[id number] Voice Confirmation ID: [id number] DOCUMENT ID: [id number] OPERATIVE REPORT [id number] NAIMA SERRANO NATHAN A DO at 0831 CC: [id number] DICTATION DATE: 12/29/19 111 [employer] INSPECTOR: 12/29/19 1804 [facility] 12/29/19 [place] [id number] [place] [id number]
== END 2019-12-29 11:46 | disposition home or self-care (01) ==
LOC: D.OPS 08:18
PROVIDERS: Anesthesiology; ATTEND Internal Medicine Gastroenterology
DX: D64.9 Anemia, unspecified (principal); R19.5 Other fecal abnormalities; K63.5 Polyp of colon

== ENCOUNTER 2020-12-10 14:20 | Emergency (ER) | payer OTHER ==
[~2020-12-10] VITALS: Ht 160 cm; Wt 40.5 kg
[2020-12-10 14:24] VITALS: BP 140/59; Ht 160 cm; Wt 40.5 kg
[2020-12-10 15:14] LABS: BASOPHILS 1.1 % (0-2); EOSINOPHILS 1.7 % (0-7); HEMATOCRIT 39.9 % (36.0-48.0); HEMOGLOBIN 12.9 g/dL (12-16); LYMPHOCYTES 17.7 % (15-50); MCHC 32.4 g/dL (31.0-37.0); MCV 92.5 fL (80.0-100.0); MEAN PLATELET VOLUME 7.2 fL (7.4-10.4); MONOCYTES 7.5 % (2-11); PLATELET COUNT 421 10x3/uL (130-400); RBC 4.31 10x6/uL (4.00-5.40); RDW 14.7 % (11.5-14.5)
[2020-12-10 15:26] LABS: ANION GAP 12.1 mmol/L (8-16); CREATININE - SERUM 0.8 mg/dL (0.6-1.3); POTASSIUM - SERUM 4.1 mmol/L (3.5-5.1)
[2020-12-10 15:33] LABS: ALBUMIN 3.6 g/dL (3.4-5.0); BILIRUBIN - TOTAL 0.18 mg/dL (0.2-1.3); PROTEIN - SERUM 7.8 g/dL (6.4-8.2)
== END 2020-12-10 16:08 | disposition home or self-care (01) ==
LOC: D.ER 14:20
PROVIDERS: Student in an Organized Health Care Education/Training Program
DX: R53.1 Weakness (principal)

== ENCOUNTER 2021-01-08 15:15 | Outpatient (CLI) | payer OTHER ==
[2020-12-10 14:24] VITALS: BMI 15.8
== END 2021-01-08 23:59 | disposition home or self-care (01) ==
LOC: D.MAMMO 15:15
PROVIDERS: ATTEND Nurse Practitioner Family
DX: Z12.31 Encounter for screening mammogram for malignant neoplasm of breast (principal)